=== PATIENT | female | born 1995 | race Caucasian/White ===

== ENCOUNTER 2019-01-18 15:31 | Outpatient (CLI) | payer OTHER ==
[2019-01-18 17:27] LABS: BACTERIA (WET MOUNT) 4+ BACTERIA SEEN; EPITHELIALS (WET MOUNT) 3+ EPITHELIALS SEEN; T.VAGINALIS (WET MOUNT) NO TRICHOMONAS SEEN; WBCS (WET MOUNT) 2+ WBCS SEEN; YEAST (WET MOUNT) NO YEAST SEEN
[2019-01-18 18:51] LABS: CHLAM PCR NOT DETECTED (NOT DETECT)
--- NOTE | 2019-01-18 18:53 | Non Stress Test Report ---
Non Stress Test Datetime Report Generated by CPN: 01/18/2019 18:53 DEMOGRAPHIC EGA NST: 33.1 INDICATION Indication for Study: labor MONITORING Monitor Explained: Monitor Explained; Test Explained; Patient Verbalized Understanding Time on Monitor: 01/18/2019 17:38 Time off Monitor: 01/18/2019 17:59 NST Duration: 21 NST INTERVENTIONS NST Interventions: None Physician Notified NST: Dr. Walker BABY A: [id number] BABY A Movement : Present Contraction Frequency : irregular FHR Baseline : 145 Accelerations : 15X15 Decelerations : None Variability : Moderate 6-25bpm NST Review: Meets Criteria for Reactive NST NST Review and Verified By : Dana Guerrero RN NSShaina Results: Reactive NST REPORT Report Trigger: Send Report
[2019-01-18 19:06] LABS: APPEARANCE,URINE CLEAR; BILIRUBIN,URINE NEGATIVE (NEGATIVE); COLOR,URINE STRAW; GLUCOSE, URINE NEGATIVE (NEGATIVE); KETONES,URINE NEGATIVE (NEGATIVE); LEUKOCYTE ESTERASE,URINE NEGATIVE (NEGATIVE); NITRITE,URINE NEGATIVE (NEGATIVE); PROTEIN,URINE NEGATIVE (NEGATIVE); URINE SPECIFIC GRAVITY 1.008; UROBILINOGEN,URINE NEGATIVE mg/dL (<2.0)
[2019-01-18 19:23] LABS: URINE AMPHETAMINES SCREEN NEGATIVE; URINE BARBITURATES SCREEN NEGATIVE; URINE BENZODIAZEPINES SCREEN NEGATIVE; URINE COCAINE SCREEN NEGATIVE; URINE MARIJUANA (THC) SCREEN NEGATIVE; URINE METHADONE SCREEN NEGATIVE; URINE PHENCYCLIDINE SCREEN NEGATIVE
--- NOTE | 2019-01-18 19:36 | RADIOLOGY REPORT (SQ) ---
EXAM DESCRIPTION: U/S OB LIMITED COMPLETED DATE/TIME: 01/18/2019 7:18 pm REASON FOR STUDY: Cervical length COMPARISON: None. TECHNIQUE: Limited transabdominal grayscale ultrasound for evaluation of specific requested obstetri mt parameters. LIMITATIONS: None. FINDINGS: CERVICAL LENGTH: 2.9 cm. Closed. CARON: 14.6 cm. FHR: 144 beats per minute. PRESENTATION: Cephalic. PLACENTA: Anterior. Grade 1. ANATOMY: Not assessed OTHER: Gestational age 33 weeks 1 day. IMPRESSION: LIMITED OBSTETRICAL ULTRASOUND WITH MEASURED PARAMETERS DELINEATED ABOVE. Trimester of : Third trimester - 28 weeks to delivery. TECHNICAL DOCUMENTATION: JOB ID: [id number] [employer]- All Rights Reserved Reading location - IP/workstation name: [email or web address]
== END 2019-01-18 19:40 | disposition home or self-care (01) ==
LOC: LC 15:31
PROVIDERS: ATTEND Student in an Organized Health Care Education/Training Program
PROC: 4A1HXCZ Monitoring of Products of Conception, Cardiac Rate, External Approach (ICD-10-PCS; principal; 2019-01-18)
DX: O47.03 False labor before 37 completed weeks of gestation, third trimester (principal); Z3A.33 33 weeks gestation of pregnancy
CPT/HCPCS: 59025; 76815; 80307; 81001; 87081; 87210; 87491; 87591

== ENCOUNTER 2019-02-11 15:03 | Outpatient (CLI) | payer OTHER ==
--- NOTE | 2019-02-11 15:33 | Non Stress Test Report ---
Non Stress Test Datetime Report Generated by CPN: 02/11/2019 15:33 DEMOGRAPHIC EGA NST: 36.4 VITAL SIGNS Temperature - NST: 98.8 Pulse - NST: 98 RESP - NST: 16 NBPSYS NST: 121 NBPDIA NST: 66 MONITORING Monitor Explained: Monitor Explained; Test Explained; Patient Verbalized Understanding Time on Monitor: 02/11/2019 15:11 Time off Monitor: 02/11/2019 15:31 NST Duration: 20 NST INTERVENTIONS NST Interventions: None Physician Notified NST: Dr Simone BABY A: [id number] BABY A Contraction Frequency : irregular FHR Baseline : 145 Accelerations : 15X15 Decelerations : None Variability : Moderate 6-25bpm NST Review: Meets Criteria for Reactive NST NST Review and Verified By : Yolande Camp RNC NST Results: Reactive NST REPORT Report Trigger: Send Report
== END 2019-02-11 15:41 | disposition home or self-care (01) ==
LOC: LC 15:03
PROVIDERS: ATTEND Obstetrics & Gynecology
PROC: 4A1HXCZ Monitoring of Products of Conception, Cardiac Rate, External Approach (ICD-10-PCS; principal; 2019-02-11)
DX: Z34.93 Encounter for supervision of normal pregnancy, unspecified, third trimester (principal)
CPT/HCPCS: 59025

== ENCOUNTER 2019-02-18 09:27 | Outpatient (CLI) | payer OTHER ==
--- NOTE | 2019-02-18 10:25 | Non Stress Test Report ---
Non Stress Test Datetime Report Generated by CPN: 02/18/2019 10:25 DEMOGRAPHIC Test Number: 3 EGA NST: 37.4 INDICATION Indication for Study (NST) Other: GDM MONITORING Monitor Explained: Monitor Explained; Test Explained; Patient Verbalized Understanding Time on Monitor: 02/18/2019 09:45 Time off Monitor: 02/18/2019 10:10 NST Duration: 25 NST INTERVENTIONS NST Interventions: PO Hydration; Reposition Patient Physician Notified NST: Dr. Younger BABY A: [id number] BABY A Movement : Present Contraction Frequency : Irregular FHR Baseline : 130 Accelerations : 15X15 Decelerations : None Variability : Moderate 6-25bpm NST Review: Meets Criteria for Reactive NST NST Review and Verified By : TMartin,RN NST Results: Reactive NST REPORT Report Trigger: Send Report
== END 2019-02-18 10:18 | disposition home or self-care (01) ==
LOC: LC 09:27
PROVIDERS: ATTEND Obstetrics & Gynecology
PROC: 4A1HXCZ Monitoring of Products of Conception, Cardiac Rate, External Approach (ICD-10-PCS; principal; 2019-02-18)
DX: O24.419 Gestational diabetes mellitus in pregnancy, unspecified control (principal); Z3A.37 37 weeks gestation of pregnancy
CPT/HCPCS: 59025; 94760

== ENCOUNTER 2019-02-24 17:44 | Inpatient (IN) | payer OTHER ==
[2019-02-24 18:30] LABS: APPEARANCE,URINE SLIGHTLY-CLOUDY; BILIRUBIN,URINE NEGATIVE (NEGATIVE); COLOR,URINE YELLOW; GLUCOSE, URINE NEGATIVE (NEGATIVE); KETONES,URINE NEGATIVE (NEGATIVE); LEUKOCYTE ESTERASE,URINE NEGATIVE (NEGATIVE); NITRITE,URINE NEGATIVE (NEGATIVE); PROTEIN,URINE NEGATIVE (NEGATIVE); URINE SPECIFIC GRAVITY 1.012; UROBILINOGEN,URINE NEGATIVE mg/dL (<2.0)
[2019-02-24] MEDS ORDERED: RINGERS SOLUTION,LACTATED 1,000 ML IV PRN (19:04)
[2019-02-24 19:08] LABS: URINE AMPHETAMINES SCREEN NEGATIVE; URINE BARBITURATES SCREEN NEGATIVE; URINE BENZODIAZEPINES SCREEN NEGATIVE; URINE COCAINE SCREEN NEGATIVE; URINE MARIJUANA (THC) SCREEN NEGATIVE; URINE METHADONE SCREEN NEGATIVE; URINE PHENCYCLIDINE SCREEN NEGATIVE
[2019-02-24] MEDS ORDERED: OXYTOCIN 10 UNIT/ML VIAL ONE (19:23)
[2019-02-24] MEDS ORDERED: OXYTOCIN/NORMAL SALINE 20 UNIT/1,000 ML RTUINJ ONE (19:23)
[2019-02-24] MEDS ORDERED: MISOPROSTOL 0.2 MG TABLET ONE (19:23)
[2019-02-24] MEDS ORDERED: LIDOCAINE 1% INJ-PF (10 MG/ML) 30 ML SDV ONE (19:23)
[2019-02-24] MEDS ORDERED: OXYTOCIN/NORMAL SALINE 20 UNIT/1,000 ML RTUINJ IV PRN (19:48)
[2019-02-24] MEDS ORDERED: PENICILLIN G-K 5 MILLION UNIT VIAL ONE ×2 (19:49→23:45)
[2019-02-24] MEDS ORDERED: PENICILLIN G POTASSIUM 5,000,000 UNIT in DEXTROSE 5%-WATER 100 ML IV ONE (19:58)
--- NOTE | 2019-02-24 20:46 | Admission Physical ---
Datetime Report Generated by CPN: 02/24/2019 20:46 CURRENT ADMISSION Chief Complaint: Uterine Contractions; Suspected Ruptured Membranes Admit Impression : Term, Intrauterine ; Ruptured Membranes Admit Plan: Admit to Unit; Initiate Labor Augmentation Protocol ALLERGIES Medication Allergies: No Medication Allergies: No Known Allergies (02/24/2019) Latex: Latex Allergies Food Allergies: [place] Environmental Allergies: None OBSTETRICAL HISTORY EDC: 03/07/2019 00:00 : 2 Para: 0 Term: 0 : 0 SAB: 0 IAB: 1 Ectopic: 0 Livin Cesareans: 0 VBACs: 0 Multiple Births: 0 Gestational Diabetes: Yes Rh Sensitization: No Incompetent Cervix: No RAJESH: No Infertility: No ART Treatment: No Uterine Anomaly: No IUGR: No Hx Previous C/S: No Macrosomia: No Hx Loss/Stillborn: No PIH: No Hx : No Placenta Previa/Abruption: No Depression/PP Depression: Yes PTL/PROM: No Post Hemorrhage: No Current Procedures: Ultrasound; NST Obstetrical History Comments: [id number], IAB G2- Current, GDM SEE RECORDS Alcohol: No Marijuana : No Cocaine: No Other Illicit Drugs: No Cigarettes: Never Smoker. [id number] MEDICAL HISTORY Diabetes: No Diabetes Type: Gestational Diabetes Blood Transfusion: No Pulmonary Disease (Asthma, TB): No Breast Disease: No Hypertension: No Warranty Administrator Surgery: No Heart Disease: No Hosp/Surgery: Yes Autoimmune Disorder: No Anesthetic Complications: No Kidney Disease: No Abnormal Pap Smear: No Neuro/Epilepsy: No Psychiatric Disorders: No Other Medical Diseases: No Hepatitis/Liver Disease: No Significant Family History: No Varicosities/Phlebitis: No Trauma/Violence : No Thyroid Dysfunction: No Medical History Comments: Anxiety and depression, tonsillectomy and adenoidectomy 2013. Septoplasty 2013 INFECTIOUS HISTORY Gonorrhea: No Genital Herpes: Yes Chlamydia: No Tuberculosis: No Syphilis: No Hepatitis: No HIV/AIDS Exposure: No Rash or Viral Illness: Yes HPV: No Infectious History Comments: rash PHYSICAL EXAM General: Normal HEENT: Normal Neurologic: Normal Thyroid: Normal Heart: Normal Lungs: Normal Breast: Deferred Back: Normal Abdomen: Normal Genitourinary Exam: Normal Extremities: Normal DTRs: Normal Pelvic Type: Adequate Vital Signs: Reviewed VAGINAL EXAM Dilatation: 2 Effacement: 50 Station: -2 MEMBRANES Pooling: Positive Membranes: Ruptured FETUS A EGA: 38.3 FHR- Baseline: 120 Variability: Moderate 6-25bpm Decelerations: None FHR Category: Category I Estimated Weight (gm): 8lbs Presentation: Vertex Admit Comment: EFW is 7-8 lbs, no outbreak or prodrome so ok for labor. PLANS FOR LABOR AND DELIVERY Labor and Delivery: None Pain Management: Epidural Feeding Preference: Both Benefit of Breast Feed Discussed: Yes Circumcision: Yes INFORMED CONSENT Signature: with User ID: [email or web address]
[2019-02-24 20:50] LABS: ABSOLUTE EOSINOPHILS # (AUTO) 0.1 10^3/uL (0.0-0.6); ABSOLUTE LYMPHOCYTES (AUTO) 2.1 10^3/uL (0.5-4.7); ABSOLUTE MONOCYTES (AUTO) 1.2 10^3/uL (0.1-1.4); ABSOLUTE NEUT (AUTO) 8.5 10^3/uL (1.7-8.2); BASOPHILS % (AUTO) 0.3 % (0-2); EOSINOPHILS % (AUTO) 0.7 % (0-6); HEMATOCRIT 35.5 % (36.0-47.0); HEMOGLOBIN 11.6 g/dL (12.0-15.5); LYMPHOCYTES % (AUTO) 17.9 % (13-45); MEAN CORPUSCULAR HGB CONC 32.6 g/dL (32.0-36.0); MEAN CORPUSCULAR VOLUME 74 fl (80-97); MONOCYTES % (AUTO) 9.9 % (3-13); PLATELET COUNT 190 10^3/uL (150-450); RED BLOOD COUNT 4.83 10^6/uL (3.72-5.28); RED CELL DISTRIBUTION WIDTH 14.7 % (11.5-14.0); SEGMENTED NEUTROPHILS % (AUTO) 71.2 % (42-78); TOTAL CELLS COUNTED % (AUTO) 100 %; WHITE BLOOD COUNT 11.9 10^3/uL (4.0-10.5)
[2019-02-24] MEDS ORDERED: VALACYCLOVIR HCL 500 MG TABLET PO ONE (21:05)
[2019-02-24] MEDS ORDERED: VALACYCLOVIR HCL 500 MG TABLET ONE (21:07)
[2019-02-24] MEDS: PENICILLIN G POTASSIUM 2,500,000 UNIT in DEXTROSE 5%-WATER 50 ML IV SCH (23:50)
[2019-02-25] MEDS ORDERED: PENICILLIN G-K 5 MILLION UNIT VIAL ONE ×5 (03:46→19:15)
[2019-02-25] MEDS: PENICILLIN G POTASSIUM 2,500,000 UNIT in DEXTROSE 5%-WATER 50 ML IV SCH ×5 (03:52→19:31)
[2019-02-25] MEDS ORDERED: PROMETHAZINE HCL INJ 25 MG/1 ML VIAL IV ONE (04:29)
[2019-02-25] MEDS ORDERED: NALBUPHINE HCL INJ 10 MG/1 ML AMPULE INJ ONE (04:29)
[2019-02-25] MEDS ORDERED: NALBUPHINE HCL INJ 10 MG/1 ML AMPULE ONE (04:30)
[2019-02-25] MEDS ORDERED: PROMETHAZINE HCL INJ 25 MG/1 ML VIAL ONE (04:30)
[2019-02-25] MEDS ORDERED: ONDANSETRON HCL INJ/PF 4 MG/2 ML SDV ONE (08:12)
[2019-02-25] MEDS ORDERED: FENTANYL CITRATE INJ/PF 100 MCG/2 ML AMPUL IV ONE ×2 (08:45→09:30)
[2019-02-25] MEDS ORDERED: FENTANYL CITRATE INJ/PF 100 MCG/2 ML AMPUL ONE ×2 (08:48→10:26)
[2019-02-25] MEDS ORDERED: ONDANSETRON HCL INJ/PF 4 MG/2 ML SDV IV ONE (09:00)
[2019-02-25] MEDS ORDERED: BUPIVACAINE HCL 0.25 % INJ/PF (2.5 MG/1 ML) 30 ML VIAL ONE (10:26)
[2019-02-25] MEDS ORDERED: PHENYLEPHRINE HCL INJ/PF 10 MG/1 ML SDV ONE (10:26)
[2019-02-25] MEDS ORDERED: EPHEDRINE SULFATE INJ 50 MG/1 ML AMPULE ONE (10:26)
[2019-02-25] MEDS ORDERED: FENTANYL/BUPIVACAINE/NS/PF 300 MCG/150 ML RTUINJ EPI ONE (10:26)
[2019-02-25] MEDS ORDERED: AMMONIA INHALANTS 10 AMPUL/BOX IH ONE (19:21)
[2019-02-25] MEDS ORDERED: OXYTOCIN/NORMAL SALINE 20 UNIT/1,000 ML RTUINJ ONE (21:22)
[2019-02-25] MEDS ORDERED: ACETAMINOPHEN 650 MG SUPP.RECT PR PRN (21:29)
[2019-02-25] MEDS ORDERED: ZOLPIDEM TARTRATE 5 MG TABLET PO PRN (21:29)
[2019-02-25] MEDS ORDERED: OXYTOCIN/NORMAL SALINE 20 UNIT/1,000 ML RTUINJ IV PRN (21:29)
[2019-02-25] MEDS ORDERED: PROMETHAZINE HCL 25 MG TABLET PO PRN (21:29)
[2019-02-25] MEDS ORDERED: NA PHOS,M-B/NA PHOS,DI-BA (ADULT) 133 ML ENEMA PR PRN (21:29)
[2019-02-25] MEDS ORDERED: DIPH/PERTUSS(ACELL)/TETANUS VAC/PF 0.5 ML SYR (>=10YO) IM PRN (21:29)
[2019-02-25] MEDS ORDERED: PROMETHAZINE HCL INJ 25 MG/1 ML VIAL IV PRN (21:29)
[2019-02-25] MEDS ORDERED: MAGNESIUM HYDROXIDE SUSP 30 ML UDCUP PO PRN (21:29)
[2019-02-25] MEDS ORDERED: DIBUCAINE 1% OINTMENT 56 GM TP PRN (21:29)
[2019-02-25] MEDS ORDERED: PSEUDOEPHEDRINE HCL 30 MG TABLET PO PRN (21:29)
[2019-02-25] MEDS ORDERED: DIPHENHYDRAMINE HCL 25 MG CAPSULE PO PRN (21:29)
[2019-02-25] MEDS ORDERED: GLYCERIN/WITCH HAZEL LEAF 1 EACH MED..WIPE TP PRN (21:29)
[2019-02-25] MEDS ORDERED: MEASLES,MUMPS&RUBELLA VACC/PF 0.5 ML VIAL SUBCUT PRN (21:29)
[2019-02-25] MEDS ORDERED: PROMETHAZINE HCL 25 MG SUPP.RECT PR PRN (21:29)
[2019-02-25] MEDS ORDERED: BENZOCAINE/MENTHOL AEROSOL SPRAY 56 ML ONE (23:16)
[2019-02-25] MEDS ORDERED: IBUPROFEN 800 MG TABLET ONE (23:16)
[2019-02-25] MEDS: IBUPROFEN 800 MG TABLET PO SCH (23:24)
[2019-02-25] MEDS: BENZOCAINE/MENTHOL AEROSOL SPRAY 56 ML TOP PRN (23:25)
--- NOTE | 2019-02-25 23:51 | Delivery Summary ---
Del Sum A-C Datetime Report Generated by CPN: 02/25/2019 23:50 DELIVERY PERSONNEL DELIVERY PERSONNEL: [id number] Delivery Doctor:: Brice Quiroz MD Labor and Delivery Nurse:: Kala Arteaga RNoil burner servicer and installer Nurse:: Laura Wallace RN Nursery Nurse:: Kayla Quiroz RN Nursery Nurse:: ANDRIY Islas/EDITOR BOOK: Alejandrina Cabrera, ST MATERNAL INFORMATION Delivery Anesthesia: Epidural Medications After Delivery: Pitocin Bolus-Please Comment; Pitocin Drip 20 Units/1000ml NSS Delivery QBL: 200 Delivery QBL Comment: total qbl 336 Maternal Complications: Maternal Fever; Other Complication Details: prolonged rupture of membranes, patient stated she ruptured on Dec 4th LABOR SUMMARY EDC: 03/07/2019 00:00 No. Babies in Womb: 1 Attempted: No Labor Anesthesia: Epidural LABOR INFORMATION Reason for Induction: Not Applicable Onset of Labor: 02/25/2019 08:28 Complete Dilatation: 02/25/2019 19:47 Oxytocin: Augmentation Group B Beta Strep: Negative Antibiotics # of Doses: 7 Antibiotics Time of Last Dose: 193 Name of Antibiotic Given: PCN Steroids Given: None Reason Steroids Not Administered: Not Applicable MEMBRANES Membranes Rupture Method: Spontaneous Rupture of Membranes: 02/23/2019 19:00 (Annotations: patient thinks approximately this time ) Length of Rupture (hr): 50.32 Amniotic Fluid Color: Clear Amniotic Fluid Amount: Scant Amniotic Fluid Odor: Normal STAGES OF LABOR Stage 1 hr: 11 Stage 1 min: 19 Stage 2 hr: 1 Stage 2 min: 32 Stage 3 hr: 0 Stage 3 min: 5 Total Time in Labor hr: 12 Total Time in Labor min: 56 VAGINAL DELIVERY Episiotomy: None Laceration #1: Perineal Laceration Extension #1: N/A Laceration Repair: No Sponge Count Correct: N/A CSECTION DELIVERY Primary Indication: N/A Secondary Indication: N/A CSection Incision: N/A BABY A INFORMATION Delivery Date/Time: 02/25/2019 21:19 Method of Delivery: Vaginal Born in Route : No : N/A Forceps: N/A Vacuum Extraction: Successful Shoulder Dystocia : No PRESENTATION/POSITION BABY A Presentation: Cephalic Cephalic Presentation: Vertex Vertex Position: OA Breech Presentation: N/A PLACENTA INFORMATION BABY A Placenta Delivery Time : 02/25/2019 21:24 Placenta Method of Delivery: Spontaneous Placenta Status: Delivered SCORES BABY A Heart Rate 1 min: >100 bpm Resp Effort 1 min: Good Cry Reflex Irritability 1 min: Cough or Sneeze or Pulls Away Muscle Tone 1 min: Active Motion Color 1 min: Body [place], Extremities Blue Resuscitation Effort 1 min: Tactile Stimulation SCORE 1 MIN: 9 Heart Rate 5 min: >100 bpm Resp Effort 5 min: Good Cry Reflex Irritability 5 min: Cough or Sneeze or Pulls Away Muscle Tone 5 min: Active Motion Color 5 min: Body [place], Extremities Blue Resuscitation Effort 5 min: Tactile Stimulation SCORE 5 MIN: 9 INFANT INFORMATION BABY A Gestational Age at Delivery: 38.4 Gestational Status: Early Term- 37- 38.6 Weeks Outcome : Liveborn Infant Condition : Stable Infant Sex: Male IDENTIFICATION BABY A Infant Verification Date/Time: 02/25/2019 21:31 ID Band Number: [id number] Mother's Name Verified: Yes RN Verifying : Marlen WallaceMarcia BELL Additional Verifying Personnel: DillonHayley RN WEIGHT/LENGTH BABY A Birthweight (gm): 3423 Infant Weight (lb): 7 Weight (oz): 9 Infant Length (in): 20.75 Infant Length (cm): 52.71 CORD INFORMATION BABY A No. Cord Vessels: 3 Nuchal Cord : N/A Cord Blood Taken: Yes-For Storage (Mom's Blood type +) Infant Suction: None ASSESSMENT BABY A Infant Complications: None Physical Findings at Delivery: Caput Succedaneum; Other Physical Findings- Other: terminal meconium, hematoma on infants head noted and skin shearing noted Respirations: Appears Normal Skin to Skin: Yes Macadam Raker/ALS Called : No Infant Care By: andriy quiroz Transferred To: Remains with Mother BABY B INFORMATION : N/A SIGNATURES Signature: with User ID: [email or web address]
[2019-02-26] MEDS: ACETAMINOPHEN WITH CODEINE #3 TABLET PO PRN ×4 (00:01→21:26)
[2019-02-26] MEDS: FAMOTIDINE 20 MG TABLET PO SCH ×3 (02:24→21:26)
[2019-02-26] MEDS: IBUPROFEN 800 MG TABLET PO SCH ×3 (05:28→21:26)
[2019-02-26 06:10] LABS: HEMATOCRIT 31.5 % (36.0-47.0); HEMOGLOBIN 10.4 g/dL (12.0-15.5); MEAN CORPUSCULAR HEMOGLOBIN 24.1 pg (27.0-33.4); MEAN CORPUSCULAR HGB CONC 32.9 g/dL (32.0-36.0); MEAN CORPUSCULAR VOLUME 73 fl (80-97); PLATELET COUNT 178 10^3/uL (150-450); RED BLOOD COUNT 4.31 10^6/uL (3.72-5.28); RED CELL DISTRIBUTION WIDTH 14.5 % (11.5-14.0); WHITE BLOOD COUNT 18.6 10^3/uL (4.0-10.5)
[2019-02-26] MEDS: FERROUS SULFATE 325 MG TABLET PO SCH ×2 (09:32→18:19)
[2019-02-26] MEDS: PRENATAL VITAMIN W DHA CAPSULE PO SCH (09:32)
[2019-02-26] MEDS: SENNOSIDES/DOCUSATE 8.6-50 MG 1 EACH TABLET PO SCH (09:32)
[2019-02-26] MEDS: DOCUSATE SODIUM 100 MG CAPSULE PO SCH ×2 (09:32→18:19)
--- NOTE | 2019-02-26 11:43 | PDOC PROGRESS REPORT ---
Subjective-OB Progress Note for:: 02/26/19 Subjective: Pt doing well, no concerns. She reports light bleeding, reg diet and voiding without difficulty. Physical Exam (OB) Vital Signs: Temp Pulse Resp BP Pulse Ox 97.8 F 65 18 122/74 99 02/26/19 07:15 02/26/19 07:15 02/26/19 07:15 02/26/19 07:15 02/26/19 07:15 Intake & Output 02/25/19 02/26/19 02/27/19 06:59 06:59 06:59 Intake Total 900 Balance 900 Weight 80.1 kg - PIH/Pre-Eclampsia Clonus: Negative Headache: Absent Epigastric Pain: No Visual Changes: No - Lochia Lochia Amount: Small 10-25 ml Lochia Color: Rubra/Red - Abdomen Description: Tender, Soft Hernia Present: No Fundal Description: Firm, Midline Fundal Height: u/u - u/2 Objective-Diagnostic Laboratory: 02/26/19 06:00 02/26/19 06:00 WBC 18.6 H RBC 4.31 Hgb 10.4 L Hct 31.5 L MCV 73 L MCH 24.1 L MCHC 32.9 RDW 14.5 H Plt Count 178 Assessment and Plan(PN) - Assessment and Plan (1) Vacuum-assisted vaginal delivery Is this a current diagnosis for this admission?: Yes (2) GDM, class A2 Is this a current diagnosis for this admission?: Yes (3) PROM (premature rupture of membranes) Qualifiers: PROM onset of labor timing: unspecified duration between rupture of membranes and onset of labor PROM gestational age: full term Qualified Code(s): O42.92 - Full-term premature rupture of membranes, unspecified as to length of time between rupture and onset of labor Is this a current diagnosis for this admission?: Yes - Time Spent with Patient Time with patient: Less than 15 minutes Medications reviewed and adjusted accordingly: Yes - Disposition Anticipated Discharge: Home Within: within 24 hours
[2019-02-27] MEDS: IBUPROFEN 800 MG TABLET PO SCH ×2 (06:25→13:53)
[2019-02-27 08:03] VITALS: BP 126/78
--- NOTE | 2019-02-27 09:55 | PDOC DISCHARGE SUMMARY ---
Impression - Admit/DC Date/PCP Admission Date/Primary Care Provider: 02/24/19 18:44 GRACE GARCIA MD Discharge Date: 02/27/19 - Discharge Diagnosis (1) Vacuum-assisted vaginal delivery Is this a current diagnosis for this admission?: Yes (2) GDM, class A2 Is this a current diagnosis for this admission?: Yes (3) PROM (premature rupture of membranes) Is this a current diagnosis for this admission?: Yes - Additional Information Resuscitation Status: Full Code Discharge Diet: Regular Discharge Activity: Balance Activity w/Rest, Pelvic Rest Referrals: GRACE GARCIA MD [Primary Care Provider] - Prescriptions: Ibuprofen [Motrin 800 mg Tablet] 800 mg PO Q8HP PRN #60 tablet PRN Reason: Home Medications: 105/Iron/Folic AC/Dha [Prena1 True Combo Pack] 1 tab PO DAILY 01/18/19 Ibuprofen [Motrin 800 mg Tablet] 800 mg PO Q8HP PRN #60 tablet 02/27/19 Results Laboratory Results: WBC 18.6 10^3/uL (4.0-10.5) H 02/26/19 06:00 RBC 4.31 10^6/uL (3.72-5.28) 02/26/19 06:00 Hgb 10.4 g/dL (12.0-15.5) L 02/26/19 06:00 Hct 31.5 % (36.0-47.0) L 02/26/19 06:00 MCV 73 fl (80-97) L 02/26/19 06:00 MCH 24.1 pg (27.0-33.4) L 02/26/19 06:00 MCHC 32.9 g/dL (32.0-36.0) 02/26/19 06:00 RDW 14.5 % (11.5-14.0) H 02/26/19 06:00 Plt Count 178 10^3/uL (150-450) 02/26/19 06:00 Lymph % (Auto) 17.9 % (13-45) 02/24/19 20:22 [place] % (Auto) 9.9 % (3-13) 02/24/19 20:22 Eos % (Auto) 0.7 % (0-6) 02/24/19 20:22 Baso % (Auto) 0.3 % (0-2) 02/24/19 20:22 Absolute Neuts (auto) 8.5 10^3/uL (1.7-8.2) H 02/24/19 20:22 Absolute Lymphs (auto) 2.1 10^3/uL (0.5-4.7) 02/24/19 20:22 Absolute Monos (auto) 1.2 10^3/uL (0.1-1.4) 02/24/19 20:22 Absolute Eos (auto) 0.1 10^3/uL (0.0-0.6) 02/24/19 20:22 Absolute Basos (auto) 0.0 10^3/uL (0.0-0.2) 02/24/19 20:22 Seg Neutrophils % 71.2 % (42-78) 02/24/19 20:22 Glucose 80 mg/dL (75-110) 02/26/19 06:00 Urine Color YELLOW 02/24/19 17:51 Urine Appearance SLIGHTLY-CLOUDY 02/24/19 17:51 Urine pH 6.0 (5.0-9.0) 02/24/19 17:51 Ur Specific [place] 1.012 02/24/19 17:51 Urine Protein NEGATIVE mg/dL (NEGATIVE) 02/24/19 17:51 Urine Glucose (UA) NEGATIVE mg/dL (NEGATIVE) 02/24/19 17:51 Urine Ketones NEGATIVE mg/dL (NEGATIVE) 02/24/19 17:51 Urine Blood NEGATIVE (NEGATIVE) 02/24/19 17:51 Urine Nitrite NEGATIVE (NEGATIVE) 02/24/19 17:51 Urine Bilirubin NEGATIVE (NEGATIVE) 02/24/19 17:51 Urine Urobilinogen NEGATIVE mg/dL (<2.0) 02/24/19 17:51 Ur Leukocyte Esterase NEGATIVE (NEGATIVE) 02/24/19 17:51 Urine Ascorbic Acid NEGATIVE (NEGATIVE) 02/24/19 17:51 Membranes Rupture POSITIVE (NEGATIVE) H 02/24/19 17:58 Urine Opiates Screen NEGATIVE 02/24/19 17:51 Urine Methadone Screen NEGATIVE 02/24/19 17:51 Ur Barbiturates Screen NEGATIVE 02/24/19 17:51 Ur Phencyclidine Scrn NEGATIVE 02/24/19 17:51 Ur Amphetamines Screen NEGATIVE 02/24/19 17:51 U Benzodiazepines Scrn NEGATIVE 02/24/19 17:51 Urine Cocaine Screen NEGATIVE 02/24/19 17:51 U Marijuana (THC) Screen NEGATIVE 02/24/19 17:51 RPR NONREACTIVE (NONREACTIVE) 02/24/19 20:22 Blood Type A POSITIVE 02/24/19 20:22 Antibody Screen NEGATIVE 02/24/19 20:22
[2019-02-27] MEDS: SENNOSIDES/DOCUSATE 8.6-50 MG 1 EACH TABLET PO SCH (11:20)
[2019-02-27] MEDS: DOCUSATE SODIUM 100 MG CAPSULE PO SCH ×2 (11:20→17:16)
[2019-02-27] MEDS: PRENATAL VITAMIN W DHA CAPSULE PO SCH (11:20)
[2019-02-27] MEDS: FERROUS SULFATE 325 MG TABLET PO SCH ×2 (11:20→17:16)
[2019-02-27] MEDS: FAMOTIDINE 20 MG TABLET PO SCH (11:21)
[2019-02-27] MEDS: BENZOCAINE/MENTHOL AEROSOL SPRAY 56 ML TOP PRN (11:23)
[2019-02-28 07:11] LABS: HSV-I IGG AB <0.91 index (0.00-0.90)
== END 2019-02-27 21:47 | disposition home or self-care (01) | DRG 806 ==
LOC: LC 17:44 → LR 18:44 → 2S 02-25 23:41
PROVIDERS: ADMIT Obstetrics & Gynecology Gynecology; ATTEND Obstetrics & Gynecology Gynecology
PROC: 10D07Z6 Extraction of Products of Conception, Vacuum, Via Natural or Artificial Opening (ICD-10-PCS; principal; 2019-02-25)
DX: O42.02 Full-term premature rupture of membranes, onset of labor within 24 hours of rupture (principal); O98.32 Other infections with a predominantly sexual mode of transmission complicating childbirth; Z37.0 Single live birth; O24.425 Gestational diabetes mellitus in childbirth, controlled by oral hypoglycemic drugs; O77.0 Labor and delivery complicated by meconium in amniotic fluid; A60.00 Herpesviral infection of urogenital system, unspecified; Z3A.38 38 weeks gestation of pregnancy
CPT/HCPCS: 36415; 59025; 80307; 81005; 82947; 84112; 85025; 85027; 86592; 86695; 86850; 86900; 86901; 94760; J2300; J2370; J2405; J2540; J2550; J2590; J3010; J3490

== ENCOUNTER 2020-02-07 15:59 | Outpatient (CLI) | payer OTHER ==
[2020-02-07 16:48] LABS: HEMATOCRIT 33.1 % (36.0-47.0); HEMOGLOBIN 10.9 g/dL (12.0-15.5); MEAN CORPUSCULAR HEMOGLOBIN 24.6 pg (27.0-33.4); MEAN CORPUSCULAR HGB CONC 32.8 g/dL (32.0-36.0); MEAN CORPUSCULAR VOLUME 75 fl (80-97); PLATELET COUNT 196 10^3/uL (150-450); RED BLOOD COUNT 4.42 10^6/uL (3.72-5.28); RED CELL DISTRIBUTION WIDTH 14.5 % (11.5-14.0); WHITE BLOOD COUNT 13.5 10^3/uL (4.0-10.5)
== END 2020-02-07 17:05 | disposition home or self-care (01) ==
LOC: LC 15:59
PROVIDERS: ATTEND Obstetrics & Gynecology Gynecology
DX: O26.892 Other specified pregnancy related conditions, second trimester (principal); R42 Dizziness and giddiness; Z3A.26 26 weeks gestation of pregnancy
CPT/HCPCS: 36415; 82962; 85027

== ENCOUNTER 2020-03-27 19:12 | Outpatient (CLI) | payer OTHER ==
[2020-03-27 19:54] LABS: APPEARANCE,URINE SLIGHTLY-CLOUDY; BILIRUBIN,URINE NEGATIVE (NEGATIVE); COLOR,URINE YELLOW; GLUCOSE, URINE NEGATIVE (NEGATIVE); KETONES,URINE NEGATIVE (NEGATIVE); LEUKOCYTE ESTERASE,URINE LARGE (NEGATIVE); NITRITE,URINE NEGATIVE (NEGATIVE); PROTEIN,URINE NEGATIVE (NEGATIVE); UROBILINOGEN,URINE NEGATIVE mg/dL (<2.0)
[2020-03-27 20:16] LABS: URINE AMPHETAMINES SCREEN NEGATIVE; URINE BARBITURATES SCREEN NEGATIVE; URINE BENZODIAZEPINES SCREEN NEGATIVE; URINE COCAINE SCREEN NEGATIVE; URINE MARIJUANA (THC) SCREEN NEGATIVE; URINE METHADONE SCREEN NEGATIVE; URINE PHENCYCLIDINE SCREEN NEGATIVE
--- NOTE | 2020-03-27 22:11 | Non Stress Test Report ---
Non Stress Test Datetime Report Generated by CPN: 03/27/2020 22:11 DEMOGRAPHIC EGA NST: 33.4 INDICATION Indication for Study (NST) Other: srom? VITAL SIGNS Temperature - NST: 98.3 Pulse - NST: 82 RESP - NST: 16 NBPSYS NST: 117 NBPDIA NST: 63 MONITORING Monitor Explained: Monitor Explained; Test Explained; Patient Verbalized Understanding Time on Monitor: 03/27/2020 19:25 Time off Monitor: 03/27/2020 21:44 NST Duration: 139 NST INTERVENTIONS NST Interventions: PO Hydration; Reposition Patient Physician Notified NST: Dr Garcia BABY A: [id number] BABY A Movement : Present Contraction Frequency : irritability FHR Baseline : 125 Accelerations : 15X15 Decelerations : None Variability : Moderate 6-25bpm NST Review: Meets Criteria for Reactive NST NST Review and Verified By : ARABELLA Ramon Results: Reactive NST REPORT Report Trigger: Send Report
== END 2020-03-27 22:02 | disposition home or self-care (01) ==
LOC: LC 19:12
PROVIDERS: ATTEND Obstetrics & Gynecology Gynecology
DX: Z03.71 Encounter for suspected problem with amniotic cavity and membrane ruled out (principal); Z3A.33 33 weeks gestation of pregnancy
CPT/HCPCS: 59025; 80307; 81001; 84112